=== PATIENT | female | born 1970 | race Caucasian/White ===

== ENCOUNTER 2016-07-03 13:35 | Emergency (ER) | payer OTHER ==
[2016-07-03 18:44] LABS: URINE BILIRUBIN NEGATIVE (NEGATIVE); URINE BLOOD 3+ (NEGATIVE); URINE KETONE NEGATIVE (NEGATIVE); URINE LEUKOCYTE ESTERASE 1+ (NEGATIVE); URINE NITRATE POSITIVE (NEGATIVE); URINE PROTEIN TRACE (NEGATIVE); UROBILINOGEN NORMAL mg/dL (<1.0)
[2016-07-03 18:56] LABS: URINE GLUCOSE (UA) 1000 mg/dL (NORMAL)
[2016-07-03 18:59] LABS: URINE RBC 0-5 /[HPF] (0-2); URINE SQUAMOUS EPITHELIAL CELL 0-10 /[HPF] (NONE SEEN)
[2016-07-03 19:00] LABS: URINE BACTERIA 2+ (NONE SEEN)
== END 2016-07-03 20:15 | disposition home or self-care (01) ==
LOC: ER 13:35
PROVIDERS: Emergency Medicine
DX: N30.80 Other cystitis without hematuria (principal); I10 Essential (primary) hypertension; Z98.890 Other specified postprocedural states; F17.210 Nicotine dependence, cigarettes, uncomplicated; R11.0 Nausea; R50.9 Fever, unspecified; Z79.899 Other long term (current) drug therapy; Z88.6 Allergy status to analgesic agent
CPT/HCPCS: 81001; 87086; 87186; 99070; 99283

== ENCOUNTER 2016-09-14 14:05 | Emergency (ER) | payer OTHER ==
[2016-09-14 14:30] LABS: BASO % 0.2 % (0.1-1.2); EOS % 0.1 % (0.7-5.8); GRAN # 10.9 10_X3_uL (1.6-6.1); GRAN % 79.9 % (34.0-71.1); HEMATOCRIT 47.3 % (34-45); HEMOGLOBIN 16.7 g/dL (11.2-15.7); LYMPH # 2.1 10_X3_uL (1.2-3.7); LYMPH % 15.6 % (19.3-51.7); MEAN CORPUSCULAR HEMOGLOBIN 30.3 pg (27.0-33.0); MEAN CORPUSCULAR HGB CONC 35.3 g/dL (32.0-36.0); MEAN CORPUSCULAR VOLUME 85.7 fL (79-95); MEAN PLATELET VOLUME 10.5 fl (7.5-11.5); MONO # 0.6 10_X3_uL (0.2-0.9); MONO % 4.2 % (4.7-12.5); PLATELET COUNT 337 x10_3/uL (182-369); RED BLOOD COUNT 5.52 x10_6/uL (3.9-5.2); RED CELL DISTRIBUTION WIDTH 14.3 % (11.7-14.4); WHITE BLOOD COUNT 13.7 x10_3/uL (4.0-10.0)
[2016-09-14 14:43] LABS: ALBUMIN 4.5 gm/dL (3.4-5.0); ALKALINE PHOSPHATASE 83 U/L (50-136); ALT/SGPT 15 U/L (3.5-33.9); AST/SGOT 22 U/L (7.04-26.96); BILIRUBIN,TOTAL 0.59 mg/dL (0.0-1.0); BLOOD UREA NITROGEN 11 mg/dL (7-18); CALCIUM 9.4 mg/dL (8.7-10.7); CARBON DIOXIDE 22 mmol/L (21-32); CREATININE 0.6 mg/dL (0.6-1.3); GLUCOSE,RANDOM 151 mg/dL (70-99); LIPASE 22 U/L (6.75-60.75); POTASSIUM 3.7 mmol/L (3.5-5.1); SODIUM 141 mmol/L (136-145); TOTAL PROTEIN 7.9 gm/dL (6.4-8.2)
[2016-09-14 15:21] LABS: PH,URINE 6.5 (5.0 - 9.0); URINE BILIRUBIN NEGATIVE (NEGATIVE); URINE BLOOD TRACE (NEGATIVE); URINE GLUCOSE (UA) NORMAL (NORMAL); URINE KETONE 2+ (NEGATIVE); URINE LEUKOCYTE ESTERASE TRACE (NEGATIVE); URINE NITRATE NEGATIVE (NEGATIVE); URINE PROTEIN 1+ (NEGATIVE); URINE RBC 0-5 /[HPF] (0-2); URINE WBC 0-5 /[HPF] (0-5); UROBILINOGEN NORMAL mg/dL (<1.0)
[2016-09-14 15:22] LABS: URINE BACTERIA 1+ (NONE SEEN); URINE MUCUS 1+; URINE SQUAMOUS EPITHELIAL CELL 0-10 /[HPF] (NONE SEEN); URINE YEAST FEW (NONE SEEN)
== END 2016-09-14 17:45 | disposition home or self-care (01) ==
LOC: ER 14:05
PROVIDERS: Internal Medicine
DX: R11.10 Vomiting, unspecified (principal); R10.9 Unspecified abdominal pain; F17.210 Nicotine dependence, cigarettes, uncomplicated; Z79.899 Other long term (current) drug therapy; Z87.19 Personal history of other diseases of the digestive system
CPT/HCPCS: 36415; 74150; 80053; 80307; 81001; 83690; 85025; 87086; 87186; 96374; 96375; 96376; 99070; 99283-25

== ENCOUNTER 2016-10-23 16:56 | Emergency (ER) | payer OTHER ==
[2016-10-23 17:11] LABS: PH,URINE 6.5 (5.0 - 9.0); URINE BILIRUBIN NEGATIVE (NEGATIVE); URINE BLOOD 2+ (NEGATIVE); URINE GLUCOSE (UA) NORMAL (NORMAL); URINE KETONE NEGATIVE (NEGATIVE); URINE LEUKOCYTE ESTERASE NEGATIVE (NEGATIVE); URINE NITRATE NEGATIVE (NEGATIVE); URINE PROTEIN NEGATIVE (NEGATIVE); UROBILINOGEN NORMAL mg/dL (<1.0)
[2016-10-23 17:21] LABS: URINE SQUAMOUS EPITHELIAL CELL 0-10 /[HPF] (NONE SEEN); URINE WBC 0-5 /[HPF] (0-5)
[2016-10-23 17:22] LABS: URINE BACTERIA TRACE (NONE SEEN)
== END 2016-10-23 18:58 | disposition home or self-care (01) ==
LOC: ER 16:56
PROVIDERS: Emergency Medicine
DX: M54.5 Low back pain (principal); G89.29 Other chronic pain; I10 Essential (primary) hypertension; K52.9 Noninfective gastroenteritis and colitis, unspecified; F17.210 Nicotine dependence, cigarettes, uncomplicated; Z88.5 Allergy status to narcotic agent; Z79.899 Other long term (current) drug therapy
CPT/HCPCS: 81001; 96372; 99070; 99283-25